=== PATIENT | female | born 1995 | race Caucasian/White ===

== ENCOUNTER → 2020-12-02 | Emergency (ER) | payer BC ==
[~2020-12-02] VITALS: Ht 162.6 cm; Wt 100.0 kg
[~2020-12-02] MED LIST: ALPR-624 PO; CARI350T PO; HYDR-4383 PO; HYDR-569 PO; IBUP-1985 PO; LORA1TAB PO; MECL12.5 PO; SERT-153 PO
[2020-12-02 01:09] VITALS: BP 142/112
[2020-12-02 01:34] LABS: URINE HCG NEGATIVE (NEG)
== END ==
LOC: ER 01:08
DX: F19.10 Other psychoactive substance abuse, uncomplicated (principal); J45.909 Unspecified asthma, uncomplicated; F41.9 Anxiety disorder, unspecified; F32.9 Major depressive disorder, single episode, unspecified; F12.90 Cannabis use, unspecified, uncomplicated; F15.90 Other stimulant use, unspecified, uncomplicated; Z88.2 Allergy status to sulfonamides; Z88.6 Allergy status to analgesic agent; Z79.899 Other long term (current) drug therapy
CPT/HCPCS: 81025; 99283

== ENCOUNTER 2021-02-26 18:30 | Emergency (ER) | payer MEDICAID ==
[~2021-02-26] VITALS: Ht 157.5 cm; Wt 125.0 kg
[2021-02-26] MEDS ORDERED: proCHLORperazine 10 MG/2 ml inj IV ONE (18:55)
[2021-02-26] MEDS ORDERED: ketorolac tromethamine 15mg/ml inj. IV ONE (18:55)
[2021-02-26 19:13] LABS: URINE HCG NEGATIVE (NEG)
[2021-02-26 19:25] LABS: URINE AMPHETAMINE SCREEN POSITIVE (Neg); URINE BARBITUATE SCREEN NEGATIVE (Neg); URINE BENZODIAZEPINES SCREEN POSITIVE (Neg); URINE CANNABINOID SCREEN NEGATIVE (Neg); URINE COCAINE SCREEN NEGATIVE (Neg); URINE METHADONE SCREEN NEGATIVE (Neg); URINE OPIATE SCREEN POSITIVE (Neg); URINE PHENCYCLIDINE SCREEN NEGATIVE (Neg)
[2021-02-26] MEDS ORDERED: NALO4SPR BOTHNARES (19:55)
[2021-02-26 20:20] VITALS: BP 152/98
== END 2021-02-26 20:23 | disposition home or self-care (01) ==
LOC: ER 18:30
DX: T40.2X1A Poisoning by other opioids, accidental (unintentional), initial encounter (principal); R45.1 Restlessness and agitation; J45.909 Unspecified asthma, uncomplicated; F41.9 Anxiety disorder, unspecified; F32.9 Major depressive disorder, single episode, unspecified; F12.90 Cannabis use, unspecified, uncomplicated; F15.90 Other stimulant use, unspecified, uncomplicated; Z98.890 Other specified postprocedural states; Z88.2 Allergy status to sulfonamides; Z88.8 Allergy status to other drugs, medicaments and biological substances; Z79.899 Other long term (current) drug therapy; Y92.89 Other specified places as the place of occurrence of the external cause
CPT/HCPCS: 80305; 81025; 99283